=== PATIENT | female | born 1990 | race Caucasian/White ===

== ENCOUNTER 2016-12-03 04:49 | Emergency (ER) | payer BC ==
[2016-12-03 04:56] VITALS: BP 142/85
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
== END 2016-12-03 05:07 | disposition home or self-care (01) ==
LOC: ER 04:49
DX: F43.0 Acute stress reaction (principal); F41.9 Anxiety disorder, unspecified; D50.9 Iron deficiency anemia, unspecified
CPT/HCPCS: 99283

== ENCOUNTER 2017-04-09 15:04 | Emergency (ER) | payer BC ==
[2017-04-09 15:29] VITALS: BP 141/87
--- NOTE | 2017-04-09 16:07 | ER Document Report ---
ED Extremity Problem, Lower - General Chief Complaint: Ankle Pain Stated Complaint: RIGHT ANKLE PAIN, SWELLING Time Seen by Provider: 04/09/17 15:50 Mode of Arrival: Ambulatory Information source: Patient Notes: Patient is a 27-year-old white female comes emergency room complaining of right ankle pain. Patient states that she had on 10 issues this morning was stepping across a parking block did not noticed there was a pothole on the other side which is about 8 inches deep she stepped into it rolled her right ankle and is complaining of right ankle pain. Patient has been ambulatory on it although it is very painful. She had on 10 issues this morning when this occurred. He denies any other injuries with the exception of a minor abrasion on her knee. She states she cleaned that up very well and does not need a tetanus shot TRAVEL OUTSIDE OF THE [place] IN LAST 30 DAYS: No - HPI Patient complains to provider of: Injury, Pain, Swelling Location: Ankle Occurred: This morning Where: Outdoors, Public place Onset/Duration: Sudden, Persistent Quality of pain: Sharp, Stabbing, Throbbing Severity: Moderate Pain Level: 2 Context: Fell, Twisted, Wearing shoes Recent injury: Yes Associated symptoms: Painful ambulation Exacerbated by: Movement, Walking, Other - Palpation Relieved by: Elevation, Ice, Rest Other injuries: Denies any other injuries with the exception of a small abrasion on right knee. - Related Data Allergies/Adverse Reactions: No Known Allergies Allergy (Verified 09/18/14 22:53) Past Medical History - General Information source: Patient Last Menstrual Period: 2 weeks ago patient is on oral control - Social History Smoking Status: Never Smoker Cigarette use (# per day): No Chew tobacco use (# tins/day): No Smoking Education Provided: Yes Frequency of alcohol use: Rare Drug Abuse: None Lives with: Family Family History: None, Reviewed & Not Pertinent Patient has suicidal ideation: No Patient has homicidal ideation: No - Past Medical History Cardiac Medical History: Reports: None Pulmonary Medical History: Reports: Hx Asthma Renal/ Medical History: Denies: Hx Peritoneal Dialysis Past Surgical History: Reports: Hx Tonsillectomy, Hx Tubal Ligation - Immunizations Immunizations up to date: Yes Hx Diphtheria, Pertussis, Tetanus Vaccination: Yes Review of Systems - Review of Systems Constitutional: No symptoms reported EENT: No symptoms reported Cardiovascular: No symptoms reported Respiratory: No symptoms reported Gastrointestinal: No symptoms reported, See HPI Genitourinary: No symptoms reported Female Genitourinary: No symptoms reported Musculoskeletal: Joint pain, Joint swelling, Muscle pain, Ankle swelling Skin: See HPI Hematologic/Lymphatic: No symptoms reported Neurological/Psychological: No symptoms reported -: Yes All other systems reviewed and negative Physical Exam - Vital signs Vitals: Temp Pulse BP Pulse Ox 98.5 F 108 H 141/87 H 99 04/09/17 15:29 04/09/17 15:29 04/09/17 15:29 04/09/17 15:29 Interpretation: Hypertensive, Tachycardic - General General appearance: Appears well, Other - Uncomfortable appearing though In distress: Mild - Respiratory Respiratory status: No respiratory distress Chest status: Nontender Breath sounds: Normal - Cardiovascular Rhythm: Regular, Tachycardia Heart sounds: Normal auscultation Murmur: No - Extremities General upper extremity: Normal inspection, Normal strength General lower extremity: Tender, Edema. No: Normal inspection, Nontender, Normal color, Normal ROM, Normal strength, Normal temperature, Normal weight bearing, Ramos's sign, Other Ankle: Tender, Edema, Limited ROM, Other - Examination patient's right ankle shows moderate amount of swelling to the right malleolus. She has decreased flexion-extension of the area in the foot she has good dorsalis pedal pulses with good cap refill in the nailbeds of the toes of the right foot. She has moderate discomfort with inversion and eversion as well as rotation. There is no major discoloration and no abrasions noted. - Neurological Neuro grossly intact: Yes Cognition: Normal Orientation: AAOx4 Mehran Coma Scale Eye Opening: Spontaneous Mehran Coma Scale Verbal: Oriented Mehran Coma Scale Motor: Obeys Commands Mehran Coma Scale Total: 15 Speech: Normal Cranial nerves: Normal Course - Vital Signs Vital signs: Temp Pulse Resp BP Pulse Ox 98.5 F 108 H 141/87 H 99 04/09/17 15:29 04/09/17 15:29 04/09/17 15:29 04/09/17 15:29 - Diagnostic Test Radiology reviewed: Reports reviewed - X-ray report shows patient has soft tissue swelling on the right lateral side of the foot with a small joint effusion. - Transfer of Care Notes: 04/09/17 16:45 Explained to patient that she needs to be nonweightbearing for the next 3 days. We will put her in a splint and crutches ibuprofen for inflammation and pain. I have informed her that for 3 days if she were to take the splint off and apply weight to the foot and ankle if it is much better then to gradually increase activity as tolerated if she still has pain she will contact an orthopedist. Procedures - Immobilization Right Ankle Time completed: 16:47 Pre-Proc Neuro Vasc Exam: Normal Immobilizer type: Ankle stirrup, Crutches Performed by: PCT Post-Proc Neuro Vasc Exam: Normal Alignment checked and good: Yes Notes: 04/09/17 16:47 Min is Jomar per his physician radiology physician assistant I checked the morning splint placement by the patient adult day care worker found to be in good position with good cap refill in the nailbeds of the toes of that right foot. Discharge - Discharge Clinical Impression: Right ankle sprain Qualifiers: Encounter type: initial encounter Involved ligament of ankle: unspecified ligament Qualified Code(s): S93.401A - Sprain of unspecified ligament of right ankle, initial encounter Condition: Good Disposition: HOME, SELF-CARE Instructions: Ice Packs ([facility]), Oral Narcotic Medication ([facility]), Splint Precautions ([facility]), Sprained Ankle ([facility]) Additional Instructions: Home and rest. Medication as prescribed. Nonweightbearing for 3 days as we discussed. Leave the splint in place at all times until that period of time is up. Ice down 3 times a day as we also discussed. After 3 days remove the splint attempt to walk on ankle. If still painful and you will need to follow- up with an orthopedist for recheck possible MRI. If you are much improved pain is very limited I would suggest getting a ankle wrap for the foot and ankle. Kehinde in [facility] have a little Sadiq sock that she can pull up with no toes and no heel will give you some support. Should you have any concerns or problems return to ER. I am giving you the name of the orthopedist is on-call for us tonight he may contact his office if you need to in 3 days to see if he can accommodate you. Prescriptions: Hydrocodone/Acetaminophen [[place] 5-325 Tablet] 1 each PO ASDIR PRN #12 tablet PRN Reason: Forms: Elevated Blood Pressure Referrals: ALANA HAUSER, [ACTIVE STAFF] - Follow up as needed
--- NOTE | 2017-04-09 16:33 | RADIOLOGY REPORT (SQ) ---
EXAM DESCRIPTION: ANKLE RIGHT COMPLETE COMPLETED DATE/TIME: 04/09/2017 4:20 pm REASON FOR STUDY: Rolled ankle this am COMPARISON: None. NUMBER OF VIEWS: Three views. TECHNIQUE: AP, lateral, and oblique radiographic images acquired of the right ankle. LIMITATIONS: None. FINDINGS: MINERALIZATION: Normal. BONES: No acute fracture or dislocation. No worrisome bone lesions. JOINTS: Small joint effusion. SOFT TISSUES: Anterior-lateral soft tissue swelling. No foreign body. OTHER: No other significant finding. IMPRESSION: No fracture identified. Small joint effusion. TECHNICAL DOCUMENTATION: JOB ID: [id number] [place]-72 2010 [employer]- All Rights Reserved
== END 2017-04-09 17:53 | disposition home or self-care (01) ==
LOC: ER 15:04
PROC: 2W3QX1Z Immobilization of Right Lower Leg using Splint (ICD-10-PCS; principal; 2017-04-09)
DX: S93.401A Sprain of unspecified ligament of right ankle, initial encounter (principal); M25.571 Pain in right ankle and joints of right foot; M79.89 Other specified soft tissue disorders; W17.2XXA Fall into hole, initial encounter
CPT/HCPCS: 99283; 73610; 29515; L1902

== ENCOUNTER 2017-12-27 05:24 | Emergency (ER) | payer BC ==
--- NOTE | 2017-12-27 06:47 | ER Document Report ---
ED General - General Mode of Arrival: Ambulatory Information source: Patient TRAVEL OUTSIDE OF THE [place] IN LAST 30 DAYS: No <JAVIER NUÑEZ - Last Filed: 12/27/17 06:59> <MAGDA TABOR - Last Filed: 12/27/17 09:59> - General Chief Complaint: Vomiting Stated Complaint: VOMITING Time Seen by Provider: 12/27/17 06:38 Notes: 27-year-old female who presents to the emergency department today with a 3 day history of nausea and vomiting. Patient states she was nauseated for approximately 1 hour before she vomited the first time. Patient states she does not have any abdominal pain but she does have generalized abdominal soreness since the vomiting began. Patient complains of a "cold" for the last week as well. Patient denies any diarrhea. 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 denies: Diarrhea Genitourinary: No symptoms reported Female Genitourinary: No symptoms reported Musculoskeletal: No symptoms reported Skin: No symptoms reported Hematologic/Lymphatic: No symptoms reported Neurological/Psychological: No symptoms reported -: Yes All other systems reviewed and negative <JAVIER NUÑEZ - Last Filed: 12/27/17 06:59> Physical Exam <JAVIER NUÑEZ - Last Filed: 12/27/17 06:59> <MAGDA ATBOR - Last Filed: 12/27/17 09:59> - Vital signs Vitals: Temp Pulse Resp BP Pulse Ox 97.7 F 86 16 134/91 H 100 12/27/17 05:28 12/27/17 05:28 12/27/17 05:28 12/27/17 05:28 12/27/17 05:28 - Notes Notes: Physical Exam: General: Alert, appears well. HEENT: Normocephalic. Atraumatic. PERRL. Extraocular movements intact. Oropharynx clear. TMs are clear bilaterally. Dry mucous membranes. Neck: Supple. Non-tender. Respiratory: No respiratory distress. Clear and equal breath sounds bilaterally. Cardiovascular: Regular rate and rhythm. Abdominal: Obese. Non-tender. No distension. Normal Bowel Sounds. Back: Non-tender. No deformity or step off. Extremities: Moves all four extremities. Upper extremities: Normal inspection. Normal ROM. Lower extremities: Normal inspection. No edema. Normal ROM. Neurological: Normal cognition. AAOx4. Normal speech. Psychological: Normal affect. Normal Mood. Skin: Warm. Dry. Normal color. (JAVIER NUÑEZ) Course - Laboratory Result Diagrams: 12/27/17 06:31 12/27/17 06:31 <JAVIER NUÑEZ - Last Filed: 12/27/17 06:59> - Laboratory Result Diagrams: 12/27/17 06:31 12/27/17 06:31 <MAGDA TABOR - Last Filed: 12/27/17 09:59> - Re-evaluation Re-evalutation: 12/27/17 09:56 Patient reports she does feel much better, headache is gone after Toradol, nausea has been known since she got Zofran. The lab work shows the patient was well hydrated before she came to the emergency room. (MAGDA TABOR) - Vital Signs Vital signs: Temp Pulse Resp BP Pulse Ox 98.5 F 86 16 134/91 H 100 12/27/17 06:43 12/27/17 05:28 12/27/17 05:28 12/27/17 05:28 12/27/17 05:28 - Laboratory Laboratory results interpreted by me: 08/22/18 08/22/18 08/22/18 06:31 06:31 08:46 MCV 74 L MCH 24.3 L RDW 18.0 H BUN 3 L Creatinine 0.42 L Glucose 119 H Urine Blood LARGE H Discharge <JAVIER NUÑEZ - Last Filed: 12/27/17 06:59> <MAGDA TABOR - Last Filed: 12/27/17 09:59> - Discharge Clinical Impression: Viral syndrome Nausea and vomiting Qualifiers: Vomiting type: unspecified Vomiting Intractability: non-intractable Qualified Code(s): R11.2 - Nausea with vomiting, unspecified Condition: Stable Disposition: HOME, SELF-CARE Additional Instructions: Viral Syndrome The physician has diagnosed a viral infection. Viruses not only cause "colds," but can cause many different symptoms including generalized aching, fever, headache, cough, diarrhea, nausea, vomiting, and fatigue. The treatment, for the most part, is simply relief of symptoms. This means that antibiotics are usually not given. Rest, fluids, pain medications and, occasionally, medication for the specific symptoms that are most bothersome will be prescribed. Use good handwashing to avoid passing the virus to others. Shared toys should be cleaned with disinfectant. Clean the toilets, sinks, and counter surfaces in bathrooms. Launder clothing in hot water. Contact the physician if you develop any new or unusual symptoms such as severe headache, stiff neck, high fever, chest pain, productive cough, or shortness of breath. You should be rechecked if you don't see marked improvement within seven to 10 days. Take medications as prescribed for nausea if needed. Drink small sips of clear liquids throughout the day in the evening. Follow-up with a local medical doctor if not improving. RETURN TO THE EMERGENCY ROOM IF ANY NEW OR WORSENING SYMPTOMS. Prescriptions: Ondansetron [Zofran Odt 4 mg Tablet] 1 - 2 tab PO Q4H PRN #10 tab.rapdis PRN Reason: For Nausea/Vomiting Scribe Attestation: 12/27/17 07:54 I personally performed the services described in the documentation, reviewed and edited the documentation which was dictated to the scribe in my presence, and it accurately records my words and actions. (MAGDA TABOR) Scribe Documentation - Scribe Written by Scribe:: Leonor Tubbs, 12/27/2017 0708 acting as scribe for :: Yeimi <JAVIER NUÑEZ - Last Filed: 12/27/17 06:59>
[2017-12-27] MEDS ORDERED: NORMAL SALINE 1000 ML 1,000 ML IV ONE (06:51)
[2017-12-27] MEDS ORDERED: ONDANSETRON HCL INJ/PF 4 MG/2 ML SDV IV ONE (06:51)
[2017-12-27 07:12] LABS: ABSOLUTE EOSINOPHILS # (AUTO) 0.1 10^3/uL (0.0-0.6); ABSOLUTE LYMPHOCYTES (AUTO) 1.8 10^3/uL (0.5-4.7); ABSOLUTE MONOCYTES (AUTO) 0.5 10^3/uL (0.1-1.4); BASOPHILS % (AUTO) 0.4 % (0-2); EOSINOPHILS % (AUTO) 1.5 % (0-6); HEMATOCRIT 36.8 % (36.0-47.0); HEMOGLOBIN 12.1 g/dL (12.0-15.5); LYMPHOCYTES % (AUTO) 23.8 % (13-45); MEAN CORPUSCULAR HEMOGLOBIN 24.3 pg (27.0-33.4); MEAN CORPUSCULAR HGB CONC 32.9 g/dL (32.0-36.0); MEAN CORPUSCULAR VOLUME 74 fl (80-97); MONOCYTES % (AUTO) 6.1 % (3-13); PLATELET COUNT 295 10^3/uL (150-450); RED BLOOD COUNT 4.97 10^6/uL (3.72-5.28); SEGMENTED NEUTROPHILS % (AUTO) 68.2 % (42-78); TOTAL CELLS COUNTED % (AUTO) 100 %; WHITE BLOOD COUNT 7.4 10^3/uL (4.0-10.5)
[2017-12-27 07:17] LABS: ALANINE AMINOTRANSFERASE 36 U/L (9-52); ALBUMIN 3.9 g/dL (3.5-5.0); ALKALINE PHOSPHATASE 58 U/L (38-126); ANION GAP 12 (5-19); ASPARTATE AMINO TRANSFERASE 27 U/L (14-36); BILIRUBIN,DIRECT 0.3 mg/dL (0.0-0.4); BILIRUBIN,TOTAL 0.5 mg/dL (0.2-1.3); BLOOD UREA NITROGEN 3 mg/dL (7-20); CALCIUM 8.7 mg/dL (8.4-10.2); CARBON DIOXIDE 24 mmol/L (22-30); CHLORIDE 106 mmol/L (98-107); GLUCOSE 119 mg/dL (75-110); POTASSIUM 3.8 mmol/L (3.6-5.0); SODIUM 141.7 mmol/L (137-145); TOTAL PROTEIN 7.3 g/dL (6.3-8.2)
[2017-12-27] MEDS ORDERED: KETOROLAC TROMETHAMINE INJ/PF 30 MG/1 ML SDV IV ONE (08:35)
[2017-12-27 09:01] LABS: APPEARANCE,URINE CLEAR; BILIRUBIN,URINE NEGATIVE (NEGATIVE); COLOR,URINE YELLOW; GLUCOSE, URINE NEGATIVE (NEGATIVE); KETONES,URINE NEGATIVE (NEGATIVE); LEUKOCYTE ESTERASE,URINE NEGATIVE (NEGATIVE); NITRITE,URINE NEGATIVE (NEGATIVE); PROTEIN,URINE NEGATIVE (NEGATIVE); URINE SPECIFIC GRAVITY 1.004; UROBILINOGEN,URINE NEGATIVE mg/dL (<2.0)
[2017-12-27 10:07] VITALS: BP 129/85
== END 2017-12-27 10:07 | disposition home or self-care (01) ==
LOC: ER 05:24
DX: R11.2 Nausea with vomiting, unspecified (principal); R61 Generalized hyperhidrosis; B34.9 Viral infection, unspecified
CPT/HCPCS: 99284; 96361; 96374; 96375; 36415; 84703; 85025; 80053; 81001; J1885; J2405; J7030

== ENCOUNTER 2018-10-08 14:40 | Emergency (ER) | payer BC ==
--- NOTE | 2018-10-08 16:35 | ER Document Report ---
HPI - HPI Patient complains to provider of: rash Time Seen by Provider: 10/08/18 16:15 Pain Level: 3 Context: 28-year-old healthy patient presents to the emergency department with chief complaint of rash that started on her feet and has moved proximally to her legs and now is affecting her back chest and arms since last Monday or Monday. She states that she initially thought it was chiggers and gave herself two permethrin baths but the rash continued to spread. She states that the rash is itchy and when she was reaching back to scratch last night she noticed that there was something wet on her hand she was thinking it was possibly a pustule. She denies any fevers but states that she has been "sluggish". She states that she has never had the chickenpox and her boyfriend was recently diagnosed with shingles. 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 No acute distress. HEAD: Normocephalic, atraumatic. EYES: Pupils equal, round, and reactive to light. Extraocular movements intact. ENT: Oral mucosa moist, tongue midline. NECK: Full range of motion. Supple. Trachea midline. EXTREMITIES: Moves all 4 extremities spontaneously. No edema, No cyanosis. PSYCH: Normal affect, normal mood. SKIN: Warm, dry, normal turgor. Multiple small healing lesions circumferentially around her ankles that extends up to her knee that become very sporadic on her thighs, with a couple of small lesions on her breasts and on her back. They are not healing in stages and there is no evidence of pustular lesions. - INFECTION CONTROL TRAVEL OUTSIDE OF THE [place] IN LAST 30 DAYS: No Course - Re-evaluation Re-evalutation: 10/08/18 16:37 Patient states she has never had chickenpox and she is concerned because her f ianc with just got diagnosed with shingles. I do not clinically suspect that this patient has chickenpox based on the clinical presentation and the evolution of the rash. 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 I am going to give her short course of burst dose prednisone for 5 days. I will, though, give her a prescription for valacyclovir 1 g 3 times per day for 7 days and have her hold it for the next 48 hours and monitor closely to see if there is any evolution of this rash consistent with chickenpox. I have given her specific instructions on whether or not to fill it. I have also given her anticipatory regarding complications from pneumonia and strict return precautions. - Vital Signs Vital signs: Temp Pulse Resp BP Pulse Ox 99.0 F 95 16 128/85 H 99 10/08/18 14:44 10/08/18 14:44 10/08/18 14:44 10/08/18 14:44 10/08/18 14:44 Discharge - Discharge Clinical Impression: Rash and nonspecific skin eruption Disposition: HOME, SELF-CARE Additional Instructions: You were seen in the emergency department this afternoon for rash. I do not suspect that you have chickenpox at this time. But we discussed at length the plan with respect to prescribe you an antiviral and holding it with watchful waiting. I have also given you a 5-day course of steroids that I want you to take. It is prednisone 40 mg daily. If you do not start to see resolution in the next 48 hours then follow-up with your primary doctor for reevaluation. To get a purple type rash i.e. blood blisters underneath your skin, develop high fevers, develop severe neck stiffness, severe headache that is the worst of your life, severe shortness of breath or chest pain, bloody vomiting or bloody diarrhea, or you have any other concerning please return to the emergency department immediately.
[2018-10-08] MEDS ORDERED: PREDNISONE 20 MG TABLET PO ONE (16:41)
[2018-10-08 17:39] VITALS: BP 128/81
== END 2018-10-08 17:38 | disposition home or self-care (01) ==
LOC: ER 14:40
DX: R21 Rash and other nonspecific skin eruption (principal); L29.8 Other pruritus; Z20.828 Contact with and (suspected) exposure to other viral communicable diseases
CPT/HCPCS: 99282; J7512

== ENCOUNTER 2019-06-20 21:20 | Emergency (ER) | payer BC ==
--- NOTE | 2019-06-20 23:12 | ER Document Report ---
ED Medical Screen (RME) - General Chief Complaint: Abdominal Pain Stated Complaint: ABDOMINAL PAIN Primary Care Provider: SANJU TORREZ DO [Primary Care Provider] - Follow up as needed Notes: Patient is a 29-year-old white female with no significant past medical history presents to the emergency department with chief complaint of right lower quadrant abdominal pain that began about 3 days ago. States is associated with intermittent fever. I have treated and performed a rapid initial assessment of this patient. A comprehensive ED assessment and evaluation of the patient, analysis of test results and completion of medical decision making process will be conducted by additional ED providers. PHYSICAL EXAMINATION: GENERAL: Well-appearing, well-nourished and in no acute distress. A&Ox4. Answers questions appropriately. TRAVEL OUTSIDE OF THE [place] 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
[2019-06-20 23:49] LABS: ABSOLUTE LYMPHOCYTES (AUTO) 2.1 10^3/uL (0.5-4.7); ABSOLUTE MONOCYTES (AUTO) 0.8 10^3/uL (0.1-1.4); ABSOLUTE NEUT (AUTO) 8.6 10^3/uL (1.7-8.2); BASOPHILS % (AUTO) 0.3 % (0-2); EOSINOPHILS % (AUTO) 0.4 % (0-6); HEMATOCRIT 40.6 % (36.0-47.0); HEMOGLOBIN 13.7 g/dL (12.0-15.5); LYMPHOCYTES % (AUTO) 18.1 % (13-45); MEAN CORPUSCULAR HEMOGLOBIN 27.4 pg (27.0-33.4); MEAN CORPUSCULAR HGB CONC 33.8 g/dL (32.0-36.0); MEAN CORPUSCULAR VOLUME 81 fl (80-97); MONOCYTES % (AUTO) 7.1 % (3-13); PLATELET COUNT 272 10^3/uL (150-450); RED BLOOD COUNT 5.02 10^6/uL (3.72-5.28); RED CELL DISTRIBUTION WIDTH 15.3 % (11.5-14.0); SEGMENTED NEUTROPHILS % (AUTO) 74.1 % (42-78); TOTAL CELLS COUNTED % (AUTO) 100 %; WHITE BLOOD COUNT 11.5 10^3/uL (4.0-10.5)
[2019-06-20 23:51] LABS: APPEARANCE,URINE CLEAR; BILIRUBIN,URINE NEGATIVE (NEGATIVE); COLOR,URINE YELLOW; GLUCOSE, URINE NEGATIVE (NEGATIVE); KETONES,URINE NEGATIVE (NEGATIVE); LEUKOCYTE ESTERASE,URINE NEGATIVE (NEGATIVE); NITRITE,URINE NEGATIVE (NEGATIVE); PROTEIN,URINE NEGATIVE (NEGATIVE); URINE SPECIFIC GRAVITY 1.011; UROBILINOGEN,URINE NEGATIVE mg/dL (<2.0)
[2019-06-21 00:12] LABS: ALBUMIN 4.5 g/dL (3.5-5.0); ALKALINE PHOSPHATASE 75 U/L (38-126); ANION GAP 10 (5-19); ASPARTATE AMINO TRANSFERASE 31 U/L (14-36); BILIRUBIN,DIRECT 0.2 mg/dL (0.0-0.4); BILIRUBIN,TOTAL 0.8 mg/dL (0.2-1.3); BLOOD UREA NITROGEN 4 mg/dL (7-20); CALCIUM 9.5 mg/dL (8.4-10.2); CARBON DIOXIDE 26 mmol/L (22-30); CHLORIDE 101 mmol/L (98-107); GLUCOSE 100 mg/dL (75-110); POTASSIUM 3.9 mmol/L (3.6-5.0)
[2019-06-21] MEDS ORDERED: NORMAL SALINE 1000 ML 1,000 ML IV ONE (02:00)
--- NOTE | 2019-06-21 02:00 | ER Document Report ---
ED GI/ - General Chief Complaint: Abdominal Pain Stated Complaint: ABDOMINAL PAIN Time Seen by Provider: 06/21/19 01:40 Primary Care Provider: SANJU TORREZ DO [NO LOCAL MD] - Follow up as needed Notes: CHIEF COMPLAINT: Right lower quadrant pain with fever HPI: 29-year-old female with no history of abdominal surgeries presenting to the emergency department complaining of 4 days of progressive right lower quadrant pain. Started as discomfort across the entire pelvis no more focal in the right lower quadrant. Hurts to walk, hurts to bend at the waist. Had fever up to 102 this morning. Patient has had increasing nausea over the last 24 hours. Denies dysuria. Did try Azo thinking she might have a UTI but that did not resolve her symptoms. ROS: See HPI - all other systems were reviewed and are otherwise negative Constitutional: no fever Eyes: no drainage, no blurred vision ENT: no runny nose, no sore throat Cardiovascular: no chest pain Resp: no SOB, no cough GI: no vomiting, no diarrhea, does not of abdominal pain, positive nausea : no dysuria Integumentary: no rash Allergy: no hives Musculoskeletal: no extremity pain or swelling Neurological: no numbness/tingling, no weakness MEDICATIONS: I agree with the patient medications as charted by the RN. ALLERGIES: I agree with the allergies as charted by the RN. PAST MEDICAL HISTORY/PAST SURGICAL HISTORY: Reviewed and agree as charted by RN. SOCIAL HISTORY: Reviewed and agree as charted by RN. FAMILY HISTORY: No significant familial comorbid conditions directly related to patient complaint EXAM: Reviewed vital signs as charted by RN. CONSTITUTIONAL: Alert and oriented and responds appropriately to questions. Well-appearing; well-nourished, mild distress secondary to pain HEAD: Normocephalic; atraumatic EYES: PERRL; Conjunctivae clear, sclerae non-icteric ENT: normal nose; no rhinorrhea; moist mucous membranes; pharynx without lesions noted, no uvula edema or deviation, no tonsillar hypertrophy, phonation normal NECK: Supple without meningismus; non-tender; no cervical lymphadenopathy, no masses CARD: RRR; no murmurs, no clicks, no rubs, no gallops; symmetric distal pulses RESP: Normal chest excursion without splinting or tachypnea; breath sounds clear and equal bilaterally; no wheezes, no rhonchi, no rales, pulse oximetry 98% on room air not hypoxic ABD/GI: Obese, normal bowel sounds; non-distended; soft, moderate tenderness in the right lower quadrant with positive rebound. Positive Rovsing. Positive heel bounce. no palpable organomegaly or masses. BACK: The back appears normal and is non-tender to palpation, there is no CVA tenderness EXT: Normal ROM in all joints; non-tender to palpation; no cyanosis, no effusions, no edema SKIN: Normal color for age and race; warm; dry; good turgor; no acute lesions noted NEURO: Moves all extremities equally; Motor and sensory function intact PSYCH: The patient's mood and manner are appropriate. Grooming and personal hygiene are appropriate. MDM: 29-year-old female presenting with progressive right lower quadrant pain concern for possible appendicitis will order CT. Patient mildly tachycardic will order IV fluids. Mild leukocytosis 11.5. Urine did not show evidence of infection TRAVEL OUTSIDE OF THE [place] 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 Nonobstructing right renal stone, 4.4 cm left ovarian cyst. We will proceed with pelvic ultrasound to evaluate for torsion 06/21/19 06:56 Awaiting ultrasound report. 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 Will give Toradol. If no torsion on ultrasound will discharge with pain management, TOMOGRAPHIC TECH follow-up 06/21/19 07:11 Radiology has read the patient study has a hemorrhagic cyst without torsion. Will discharge home follow-up HYDROGENATION STILL OPERATOR - Vital Signs Vital signs: Temp Pulse Resp BP Pulse Ox 99.6 F 105 H 17 139/89 H 100 06/21/19 06:47 06/21/19 06:47 06/21/19 06:47 06/21/19 06:47 06/21/19 06:47 - Laboratory Result Diagrams: 06/20/19 23:30 06/20/19 23:30 Laboratory results interpreted by me: 06/20/19 06/20/19 06/20/19 23:30 23:30 23:30 WBC 11.5 H RDW 15.3 H Absolute Neuts (auto) 8.6 H BUN 4 L ALT 48 H C-Reactive Protein 29.0 H Urine Blood SMALL H Discharge - Discharge Clinical Impression: Abdominal pain, RLQ, Ovarian cyst, left Condition: Stable Disposition: HOME, SELF-CARE Additional Instructions: Follow-up closely with your HYDROGENATION STILL OPERATOR, it was noted on your imaging studies today that you have a 4.4 cm hemorrhagic left cyst on the ovary that is likely causing her symptoms. Pain medications as prescribed no driving if taking narcotics for pain. Return for intractable pain or symptoms Prescriptions: Naproxen 500 mg PO BID PRN #14 tablet PRN Reason: Hydrocodone/Acetaminophen [[place] 5-325 mg Tablet] 1 tab PO Q4 PRN #15 tablet PRN Reason: Referrals: SANJU TORREZ DO [NO LOCAL MD] - Follow up as needed
[2019-06-21] MEDS ORDERED: ONDANSETRON HCL INJ/PF 4 MG/2 ML SDV IV ONE (02:51)
--- NOTE | 2019-06-21 05:42 | RADIOLOGY REPORT (SQ) ---
CT abdomen and pelvis with contrast on 06/21/2019 at 4:41 AM CLINICAL INDICATION: Right lower quadrant pain TECHNIQUE: Multiple axial images are obtained throughout the abdomen and pelvis following the administration of IV contrast, 100 mL of Omnipaque 350 contrast was administered intravenously without complication. This exam was performed according to our departmental dose-optimization program, which includes automated exposure control, adjustment of the mA and/or kV according to patient size and/or use of iterative reconstruction technique. Total DLP is 1880.68 mGy*cm. COMPARISON: None FINDINGS: Abdomen: The lung bases are clear. There is mild fatty infiltration of the liver. There is a small nonobstructing right renal stone. No ureteral stones or hydronephrosis is noted. The solid abdominal organs are otherwise unremarkable. There is no abdominal adenopathy. There is no free fluid or free air within the abdomen. The abdominal portion of the GI tract is unremarkable. Pelvis: There is a 4.0 x 3.3 x 4.4 cm simple appearing left ovarian cyst. This should be considered benign with no follow-up recommended. Pelvic organs otherwise appear unremarkable by CT. There is no free fluid in the pelvis. There is no pelvic adenopathy. Pelvic portion of the GI tract including the appendix is unremarkable. No bony abnormality is noted. IMPRESSION: 1. 4.4 cm simple appearing left ovarian cyst, this should be considered benign with no follow-up recommended. 2. Small nonobstructing right renal stone.
[2019-06-21] MEDS ORDERED: KETOROLAC TROMETHAMINE INJ/PF 30 MG/1 ML SDV IV ONE (06:35)
[2019-06-21 06:48] VITALS: BP 139/89
--- NOTE | 2019-06-21 07:10 | RADIOLOGY REPORT (SQ) ---
Ultrasound pelvis transvaginal on 06/21/2019 at 6:14 AM CLINICAL INDICATION: Ovarian cyst, lower abdominal pain, question torsion COMPARISON: CT from 06/21/2019 FINDINGS: Multiple sonographic images are obtained throughout the pelvis by transvaginal approach, both transverse and sagittal images are obtained. Uterus measures approximately 8.7 x 4.2 x 4.7 cm. Small nabothian cysts are noted in the cervix. Right ovary measures approximately 3.6 x 2.6 x 2.5 cm. Flow is demonstrated in the right ovary. Left ovary measures approximately 4.8 x 5.7 x 4.3 cm. Flow is demonstrated in the left ovary. Within the left ovary there is a 4.4 x 4.5 x 3.8 cm left ovarian cyst with internal echoes and increased through transmission with no internal blood flow consistent with hemorrhagic ovarian cyst. This should be considered benign with no follow-up recommended. Endometrial stripe measures 8 mm which is within normal limits. Uterine myometrium appears homogeneous. IMPRESSION: 4.5 cm hemorrhagic left ovarian cyst. This should be considered benign with no follow-up recommended.
== END 2019-06-21 07:39 | disposition home or self-care (01) ==
LOC: ER 21:20
DX: N83.202 Unspecified ovarian cyst, left side (principal); N20.0 Calculus of kidney; R10.31 Right lower quadrant pain; R10.813 Right lower quadrant abdominal tenderness; R11.0 Nausea; R00.0 Tachycardia, unspecified; D72.829 Elevated white blood cell count, unspecified; J45.909 Unspecified asthma, uncomplicated; Z87.891 Personal history of nicotine dependence; Z98.51 Tubal ligation status
CPT/HCPCS: 99284; 96361; 96374; 96375; 36415; 83690; 85025; 81025; 86140; 80053; 81001; 76830; 93976; 74177; J1885; J2405; J7030

== ENCOUNTER → 2020-01-14 | Outpatient (CLI) | payer BC ==
--- NOTE | 2020-01-14 14:41 | RADIOLOGY REPORT (SQ) ---
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 TECHNIQUE: Post IV contrasted scanning from skull base through lung apices with review of bone, soft tissue and lung windows. Reconstructed coronal and sagittal MPR images reviewed. All images stored on PACS. All CT scanners at this facility use dose modulation, iterative reconstruction, and/or weight based d osing when appropriate to reduce radiation dose to as low as reasonably achievable (ALARA). [facility]: Dose Right [facility]: CareDose [facility]: Dose Right [facility]: Teradose 4D [facility]: AgentPiggy CONTRAST TYPE AND DOSE: contrast/concentration: Isovue 350.00 mmol/ml; Total Contrast Delivered: 75. 0 ml; Total Saline Delivered: 55.0 ml RENAL FUNCTION: GFR > 60. RADIATION DOSE: . LIMITATIONS: None. FINDINGS: SKULL BASE: Intact. MAJOR SALIVARY GLANDS: Left parotid gland is small compared to the right. No masses. LYMPHADENOPATHY: Bilateral subcentimeter level 8 parotid nodes. Scattered bilateral subcentimeter ce rvical nodes. The larger nodes are left level 2A measuring 9 x 15 mm image 49. 12 x 9 mm left level 3 node image 57. MUCOSAL MASSES OR ASYMMETRY: Abnormal midline soft tissue in the tongue base obliterating the vallecu la on image 50 and sagittal image. This most likely represents hypertrophy of the lingual tonsils. Mass cannot be excluded. LARYNX/CORDS: No abnormal findings. VASCULAR STRUCTURES: The major vessels are patent. LUNG APICES: Clear. BONES: Intact. THYROID: Prior right lobectomy. PARANASAL SINUSES: Clear. OTHER: No other significant finding. IMPRESSION: 1. Mildly enlarged nodes as described above. No bulky adenopathy. 2. Asymmetry in the parotid glands, possibly due to prior partial resection of the left gland. 3. Probable lingual tonsillar hypertrophy. Consider correlation with laryngoscopy if not already per formed. 4. Prior right thyroidectomy. TECHNICAL DOCUMENTATION: JOB ID: [id number] Quality ID # [id number]: Final reports with documentation of one or more dose reduction techniques (e.g., Au tomated exposure control, adjustment of the mA and/or kV according to patient size, use of iterative reconstruction technique) 2010 Dr. Tariff- All Rights Reserved Reading location - IP/workstation name: [email or web address]
== END ==
LOC: RAD 09:45
PROVIDERS: ATTEND Nurse Practitioner Family
DX: C07 Malignant neoplasm of parotid gland (principal)
CPT/HCPCS: 70491

== ENCOUNTER 2020-05-03 07:24 | Emergency (ER) | payer BC ==
[2020-05-03 07:31] VITALS: BP 141/90
--- NOTE | 2020-05-03 08:07 | ER Document Report ---
ED General - General Chief Complaint: Facial Droop Stated Complaint: FACIAL NUMBNESS,SLURRED SPEECH Time Seen by Provider: 05/03/20 07:50 Primary Care Provider: RAJENDRA DELATORRE PA-C [Primary Care Provider] - Follow up as needed TRAVEL OUTSIDE OF THE [place] IN LAST 30 DAYS: No - HPI Notes: Chief complaint: Right facial drooping History of present illness: 30-year-old female resents with right-sided facial droop present since yesterday morning. Is gotten a little worse overnight. She complains of some drooling when she puts liquids in her mouth and also has some mild irritation of her right eye. Patient notes that she recently had a "lingual tonsillectomy" performed by local ENT physician. She is taking no long-term medications. - Related Data Allergies/Adverse Reactions: No Known Allergies Allergy (Verified 10/08/18 14:41) Past Medical History - General Information source: Patient, [facility] Records - Social History Smoking Status: Never Smoker Frequency of alcohol use: None Drug Abuse: None Family History: None, Reviewed & Not Pertinent - Past Medical History Cardiac Medical History: Denies: Hx Coronary Artery Disease, Hx Heart Attack, Hx Hypertension Pulmonary Medical History: Reports: Hx Asthma Denies: Hx Bronchitis, Hx COPD, Hx Pneumonia Neurological Medical History: Denies: Hx Cerebrovascular Accident, Hx Seizures Renal/ Medical History: Denies: Hx Peritoneal Dialysis Musculoskeletal Medical History: Denies Hx Arthritis Psychiatric Medical History: Reports: Hx Depression Past Surgical History: Reports: Hx Thyroid Surgery, Hx Tonsillectomy, Hx Tubal Ligation, Other - 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 HENT: Negative for sore throat. Eyes: As per HPI. Cardiovascular: Negative for chest pain. Respiratory: Negative for shortness of breath. Gastrointestinal: Negative for abdominal pain, vomiting or diarrhea. Genitourinary: Negative for dysuria. Musculoskeletal: Negative for back pain. Skin: Negative for rash. Neurological: As per HPI. 10 point ROS negative except as marked above and in HPI. Physical Exam - Vital signs Vitals: Temp Pulse Resp BP Pulse Ox 97.6 F 108 H 16 141/90 H 98 05/03/20 07:30 05/03/20 07:30 12/27/20 07:30 05/03/20 07:30 05/03/20 07:30 - Notes Notes: GENERAL: Well-developed well-nourished female approximately stated age appearing in no acute distress with obvious right facial ptosis. SKIN: Good turgor no rashes. HEAD: Normocephalic atraumatic. EYES: PERRLA. EOMI. Conjunctivae and sclerae clear. EARS: CANALS AND TMS CLEAR. Mild tenderness to percussion right postauricular area in the region of the stylomastoid foramen. NOSE: CLEAR. MOUTH: Moist mucosa. Good dentition. No stridor or edema. No drooling. NECK: Supple. No masses or thyromegaly. No adenopathy. Carotids 2+ without bruits. No JVD. BACK: Symmetrical without tenderness. CHEST: Respirations unlabored. Breath sounds clear and symmetrical. HEART: Regular rhythm. No murmur gallop or rub. ABDOMEN: Soft nontender without masses, organomegaly or rebound. Bowel sounds normally active. No bruits. GENITALIA: Deferred. EXTREMITIES: No edema. No calf tenderness. Cap refill less than 1.5 seconds. Dorsalis pedis and posterior tibial pulses 3+ and symmetrical. NEUROLOGICAL: Prominent right-sided facial ptosis affecting the upper and lower face. GCS 15. Alert and oriented x3. Normal gait. Fluent speech. Cranial nerves II through XII intact. Sensorimotor and cerebellar normal. Normal tone. PSYCHIATRIC: Appropriate affect. 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 We talked about the condition and its treatment and prognosis. Findings, clinical impression and plan of treatment have been discussed with patient/family. Understanding of current findings and recommendations has been acknowledged by them and there is agreement regarding disposition and follow-up. 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 It's caused by a temporary paralysis of the nerve which controls the muscles. The cause is unknown, but it's thought to be caused by a virus in most cases. The physician's exam shows that this is NOT a stroke. Arzola's Palsy usually gets better by itself. There is no cure. Sometimes cortisone-type medication is given to decrease nerve swelling. This problem is usually temporary, lasting about three weeks. During that time, you must protect the eye from injury (because the eyelid muscles often do not cover it). Ointment or a patch may be necessary. Be sure to follow up as instructed, and call the doctor at once if new symptoms arise. Report any eye pain, decreasing vision or double vision, or any numbness or weakness outside the face area. Keep the right eye moist with artificial tears or contact wetting solution as discussed. Take prescribed medications as discussed. Follow-up with your primary care physician within the next 48 hours. Return here as needed for new or worsening symptoms. Prescriptions: Prednisone [Deltasone 20 mg Tablet] 2 tab PO DAILY 5 Days tablet Acyclovir [Zovirax 800 mg Tablet] 800 mg PO 5XD #50 tab Referrals: RAJENDRA DELATORRE PA-C [Primary Care Provider] - Follow up as needed
== END 2020-05-03 08:29 | disposition home or self-care (01) ==
LOC: ER 07:24
DX: G51.0 Bell's palsy (principal); J45.909 Unspecified asthma, uncomplicated
CPT/HCPCS: 99283